=== PATIENT | male | born 1980 | race Caucasian/White ===

== ENCOUNTER 2024-02-09 12:57 | Emergency (ER) | payer OTHER ==
[2024-02-09] MEDS ORDERED: ASPIRIN 81 MG CHEWABLE TABLET ONE (13:27)
--- NOTE | 2024-02-09 13:55 | RAD REPORT ---
EXAM DESCRIPTION: [place] Single View02/09/2024 1:44 pm CLINICAL HISTORY: cough COMPARISON: 2016 FINDINGS: The lungs appear clear of acute infiltrate. The heart is normal size IMPRESSION: No acute abnormalities displayed
[2024-02-09 13:58] LABS: Absolute Lymphocytes (CBC) 0.9 K/uL (0.7-4.9); Absolute Monocytes 0.6 K/uL (0.1-1.3); Absolute Neutrophil 8.4 K/uL (1.8-8.0); Basophils % 0.3 % (0-1.3); Eosinophils % 0.4 % (0-4.4); Hematocrit 45.7 % (39.6-49.0); MCH 29.5 pg (27.0-35.0); MCHC 32.9 g/dL (32.0-36.0); MCV 89.6 fL (80-100); MPV 7.8 fL (7.6-11.3); Monocytes % 6.1 % (3.3-12.3); Neutrophils % 84.2 % (41.7-73.7); Platelets 259 thou/uL (152-406)
[2024-02-09 14:19] LABS: ALT/SGPT 28 U/L (16-61); AST/SGOT 11 U/L (15-37); Albumin 4.2 g/dL (3.4-5.0); Albumin/Globulin Ratio 1.2 (1.1-1.8); Alkaline Phosphatase 113 U/L (45-117); Anion Gap 6.3 mEq/L (5.0-15.0); BUN Blood Urea Nitrogen 17 mg/dL (7-18); Bicarbonate 30 mEq/L (21-32); Bilirubin Direct 0.2 mg/dL (0-0.2); Bilirubin Indirect, Calculated 0.5 mg/dL (0.2-0.8); Bilirubin Total 0.7 mg/dL (0.2-1.0); Globulin 3.6 g/dL (2.3-3.5); Glomerular Filtration Rate 86 ml/min (=/>90); Glucose Level 98 mg/dL (74-106); Magnesium 2.2 mg/dL (1.6-2.4); NT PRO-BNP 18 pg/mL (<125); Potassium 4.3 mEq/L (3.5-5.1); Protein, Total 7.8 g/dL (6.4-8.2); Sodium Level 138 mEq/L (136-145)
[2024-02-09 14:20] LABS: Troponin High Sensitivity < 3.0 pg/mL (<58.9)
[2024-02-09 14:23] LABS: PT Prothrombin Time 12.5 SECONDS (9.4-12.5); Protime INR 1.14
[2024-02-09] MEDS ORDERED: METHYLPREDNISOLONE 125 MG INJ ONE (14:35)
[2024-02-09] MEDS ORDERED: ALBUTEROL 2.5 MG/3 ML NEB SOL ONE (14:35)
[2024-02-09] MEDS ORDERED: IPRATROPIUM BROM 0.5MG/2.5ML ONE (14:35)
--- NOTE | 2024-02-09 16:31 | RAD REPORT ---
EXAM DESCRIPTION: CT - Chest For Pe Angio - 02/09/2024 4:03 pm CLINICAL HISTORY: Chest pain COMPARISON: None. TECHNIQUE: Dynamically enhanced axial 3 mm thick images of the chest were obtained during administra tion of 100 mL Isovue 370 IV contrast. Coronal and oblique reconstruction images were generated and r eviewed. Exam utilizes a protocol for optimal evaluation of pulmonary arterial tree. Maximum intensity projections 3D imaging was utilized All CT scans are performed using dose optimization technique as appropriate and may include automated exposure control or mA/KV adjustment according to patient size. FINDINGS: A pulmonary embolus is not seen. A thoracic aortic aneurysm is not noted. A pleural effusion is not seen. A pericardial effusion is not seen. Mild bilateral patchy ground-glass opacities IMPRESSION: Negative for a pulmonary embolism. Mild to moderate patchy bilateral ground-glass opacities may indicate infection
--- NOTE | 2024-02-09 16:41 | EDPHYS ---
Physician Documentation [facility] Name: Stephon March Age: 43 yrs Sex: Male : 1980 Arrival Date: 02/09/2024 Time: 12:57 Bed 12 Private MD: ED Physician Carlos Alex HPI: 02/08 13:25 This 43 yrs old Male presents to ER via Ambulatory with complaints of Chest Pain, Chest cp Congestion. 13:25 The patient or guardian reports chest pain that is located primarily in the anterior cp chest wall. 13:25 Associated signs and symptoms: Pertinent positives: cough, chest congestion times 2 cp weeks, shortness of breath, Pertinent negatives: abdominal pain, lower extremity pain, lower extremity swelling, near syncope. The chest pain is described as aching. Historical: - Allergies: 13:10 No Known Allergies; ll1 - Home Meds: 13:10 atorvastatin oral [Active]; ll1 - PMHx: 13:10 Hypercholesterolemia; ll1 - PSHx: 13:10 None; ll1 - Immunization history:: Adult Immunizations up to date. - Infectious Disease History:: Denies. - Social history:: Smoking status: Patient denies any tobacco usage or history of. ROS: 13:30 Constitutional: Negative for body aches, chills, fever, poor PO intake, cp 13:30 Eyes: Negative for injury, pain, redness, and discharge, cp 13:30 ENT: Negative for drainage from ear(s), ear pain, sore throat, difficulty swallowing, difficulty handling secretions, 13:30 Cardiovascular: Positive for chest pain, 13:30 Respiratory: Positive for cough, with white sputum, shortness of breath, at rest. 13:30 Abdomen/GI: Negative for abdominal pain, vomiting, diarrhea, constipation, 13:30 Neuro: Negative for altered mental status, dizziness, headache, syncope, near syncope, weakness, 13:30 All other systems are negative, Exam: 13:35 Constitutional: The patient appears in no acute distress, alert, awake, cp non-diaphoretic, non-toxic, well developed, well nourished, 13:35 Head/Face: Normocephalic, atraumatic. cp 13:35 Eyes: Periorbital structures: appear normal, Conjunctiva: normal, no exudate, no injection, Sclera: no appreciated abnormality, Lids and lashes: appear normal, bilaterally, 13:35 ENT: External ear(s): are unremarkable, Ear canal(s): are normal, clear, TM's: dullness, bilaterally, Nose: is normal, Mouth: Lips: moist, Oral mucosa: pink and intact, moist, Posterior pharynx: Airway: no evidence of obstruction, patent, swelling, is not appreciated, erythema, is not appreciated, exudate, is not appreciated, 13:35 Neck: ROM/movement: is normal, is supple, without pain, no range of motions limitations, no meningismus, no nuchal rigidity, 13:35 Chest/axilla: Inspection: normal, Palpation: is normal, no crepitus, no tenderness, 13:35 Cardiovascular: Rate: normal, Rhythm: regular, Edema: is not appreciated, JVD: is not appreciated, 13:35 Respiratory: the patient does not display signs of respiratory distress, Respirations: labored breathing, is not present, Breath sounds: bronchial sounds, that are mild, are heard diffusely, stridor, is not appreciated, wheezing: is not appreciated, 13:35 Abdomen/GI: Inspection: abdomen appears normal, Palpation: abdomen is soft and non-tender, in all quadrants, 13:35 Back: pain, is absent, ROM is normal, 13:35 Neuro: Orientation: to person, place \T\ time. Mentation: is normal, Motor: moves all fours, strength is normal, Sensation: is normal, 13:48 ECG was reviewed by the Attending Physician. cp Vital Signs: 13:11 BP 112 / 79; Pulse 71; Resp 16; Temp 97.8; Pulse Ox 97% on R/A; Weight 99.79 kg; Height ll1 6 ft. 3 in. ; Pain 10/10; 14:47 BP 110 / 67; Pulse 56; Resp 14 S; Pulse Ox 99% on R/A; as6 15:27 BP 115 / 68; Pulse 64; Resp 15; Pulse Ox 97% ; as6 17:02 BP 117 / 82; Pulse 61; Resp 19; Pulse Ox 95% ; as6 13:11 Body Mass Index 27.50 (99.79 kg, 190.5 cm) ll1 13:11 Pain Scale: Adult ll1 MDM: 13:05 Patient medically screened. cp 16:38 The patient was given aspirin in the Emergency Department. cp 16:38 Differential diagnosis: acute myocardial infarction, chest wall pain, pleurisy, cp pneumonia, pulmonary embolus. Data reviewed: vital signs, nurses notes, lab test result(s), EKG, radiologic studies, CT scan, plain films. I considered the following discharge prescriptions or medication management in the emergency department Medications were administered in the Emergency Department. See MAR. Independent interpretation of the following test(s) in the Emergency Department EKG: See my EKG interpretation above. 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 Response to treatment: the patient's symptoms have markedly improved after treatment, and as a result, I will discharge patient. 02/08 13:26 Order name: Basic Metabolic Panel; Complete Time: 14:25 cp 07/05 14:25 Interpretation: Normal except: GFR 86. cp 02/08 13:26 Order name: CBC with Diff; Complete Time: 14:25 cp 02/08 13:26 Order name: LFT's; Complete Time: 14:25 cp 07/ 13:26 Order name: Magnesium; Complete Time: 14:25 cp 07/05 13:26 Order name: NT PRO-BNP; Complete Time: 14:25 cp 07/ 13:26 Order name: PT-INR; Complete Time: 14:25 cp 07/05 13:26 Order name: Troponin HS; Complete Time: 14:25 cp 07/05 13:26 Order name: XRAY Chest (1 view); Complete Time: 13:58 cp /05 13:58 Interpretation: Report review. cp 02/08 15:28 Order name: CT Chest For PE Angio; Complete Time: 16:32 cp 07/ 16:33 Interpretation: Report reviewed. cp 02/08 13:26 Order name: Cardiac monitoring; Complete Time: 13:51 cp 07/ 13:26 Order name: EKG - Nurse/Tech; Complete Time: 13:51 cp 07/ 13:26 Order name: IV Saline Lock; Complete Time: 13:51 cp 07/05 13:26 Order name: Labs collected and sent; Complete Time: 13:51 cp 02/08 13:26 Order name: O2 Per Protocol; Complete Time: :51 cp 02/08 13:26 Order name: O2 Sat Monitoring; Complete Time: :51 cp EC:48 Rate is 66 beats/min. Rhythm is regular. ID interval is normal. QRS interval is normal. cp QT interval is normal. T waves are Inverted in leads III, aVR. Interpreted by me. Reviewed by me. Administered Medications: 13:40 Drug: Aspirin PO Chewable Tablet 324 mg PO once; 81 mg tablets x 4 Route: PO; as6 16:49 Follow up: Response: No adverse reaction as6 14:41 Drug: MethylPrednisoLONE IVP 125 mg IVP once Route: IVP; Site: right antecubital; as6 16:49 Follow up: Response: No adverse reaction as6 14:41 Drug: Albuterol Inhalation 2.5 mg Inhalation once Route: Inhalation; as6 16:49 Follow up: Response: No adverse reaction as6 14:41 Drug: Ipratropium Inhalation Aerosol 0.5 mg Inhalation once Route: Inhalation; as6 16:49 Follow up: Response: No adverse reaction as6 16:49 Drug: Rocephin IV 1 grams IV at calculated rate once; Given slow IV push per pharmacy as6 instructions Route: IV; Rate: calculated rate; Site: right antecubital; 17:02 Follow up: Response: No adverse reaction; IV Status: Completed infusion; IV Intake: [id number] 16:49 Drug: AZITHromycin PO 500 mg PO once Route: PO; as6 17:02 Follow up: Response: No adverse reaction as6 Disposition: 02/09 07:04 Co-signature as Attending Physician, Carlos Alex MD I reviewed the patient's care rn provided by the Advanced Practice Provider and agree with the diagnosis and treatment plan. Disposition Summary: 02/09/24 16:39 Discharge Ordered Notes: Location: Home cp Problem: new cp Symptoms: have improved cp Condition: Stable cp Diagnosis - Chest pain, unspecified cp - Pneumonia, unspecified organism cp Followup: cp - With: Private Physician - When: 2 - 3 days - Reason: Recheck today's complaints Discharge Instructions: - Discharge Summary Sheet cp - Nonspecific Chest Pain, Adult cp - Community-Acquired Pneumonia, Adult cp Forms: - Medication Reconciliation Form cp - Antibiotic Education cp - Prescription Opioid Use cp - Patient Portal Instructions cp - Leadership Thank You Letter cp Prescriptions: - Bromfed DM 2-30-10 mg/5 mL Oral syrup - administer 10 milliliter ORAL route every 6 to 8 hours as needed for cold cp symptoms; 240 milliliter; Refills: 0, Product Selection Permitted - albuterol sulfate 90 mcg/actuation Inhalation HFA Aerosol Inhaler - inhale 1 inhalation INHALATION route every 4 to 6 hours as needed for cp bronchospasm; administer via ventilator; 1 unit; Refills: 0, Product Selection Permitted - Augmentin 875-125 mg Oral Tablet - take 1 tablet ORAL route every 12 hours for 10 days; 20 tablet; Refills: 0, cp Product Selection Permitted - Ibuprofen 800 mg Oral Tablet - take 1 tablet ORAL route every 8 hours As needed take with food; 30 tablet; cp Refills: 0, Product Selection Permitted - Zithromax Z-Gregory 250 mg Oral Tablet - take 1 tablet ORAL route as directed for 5 days Day 1 - take two (2) tablets cp one time. Day 2, 3, 4 , 5 take one (1) tablet once daily.; 6 tablet; Refills: 0, Product Selection Permitted Signatures: Dispatcher [employer] EDMS Carlos Alex MD MD rn Page, Corey, PA PA cp Lewis, Lynsay, RN RN ll1 Herberth Schilling RN RN as6
--- NOTE | 2024-02-09 16:41 | ER ---
Nurse's Notes [facility] Name: Stephon March Age: 43 yrs Sex: Male : 1980 Arrival Date: 02/09/2024 Time: 12:57 Bed 12 Private MD: Diagnosis: Chest pain, unspecified;Pneumonia, unspecified organism Presentation: 02/08 13:11 Chief complaint: Patient states: Cough for 2 weeks, + chills, unknown if he has fever. ll1 Some N/V/D and itchy rash. On steroids that aren't helping yet. Coronavirus screen: Client denies travel out of the [place] in the last 14 days. cough unrelated to allergies, difficulty breathing, fatigue, muscle pain, shortness of breath, Client presents with at least one sign or symptom that may indicate coronavirus-19. Standard/surgical mask placed on the client. Ebola Screen: Patient denies travel to an Ebola-affected area in the 21 days before illness onset. Initial Sepsis Screen: Does the patient meet any 2 criteria? No. Patient's initial sepsis screen is negative. Does the patient have a suspected source of infection? No. Patient's initial sepsis screen is negative. Risk Assessment: Do you want to hurt yourself or someone else? Patient reports no desire to harm self or others. Onset of symptoms was January 26, 2024. 13:11 Method Of Arrival: Ambulatory ll1 13:11 Acuity: DANELLE 3 ll1 Triage Assessment: 13:13 General: Appears uncomfortable, Behavior is cooperative, appropriate for age, anxious. ll1 Pain: Denies pain. Aggravated by CP with coughing. Respiratory: Reports cough that is pain with cough. GI: Reports diarrhea, nausea, vomiting. Historical: - Allergies: 13:10 No Known Allergies; ll1 - Home Meds: 13:10 atorvastatin oral [Active]; ll1 - PMHx: 13:10 Hypercholesterolemia; ll1 - PSHx: 13:10 None; ll1 - Immunization history:: Adult Immunizations up to date. - Infectious Disease History:: Denies. - Social history:: Smoking status: Patient denies any tobacco usage or history of. Screenin:[facility] ED Fall Risk Assessment (Adult) History of falling in the last 3 months, as6 including since admission No falls in past 3 months (0 pts) Confusion or Disorientation No (0 pts) Intoxicated or Sedated No (0 pts) Impaired Gait No (0 pts) Mobility Assist Device Used No (0 pt) Altered Elimination No (0 pt) Score/Fall Risk Level 0 - 2 = Low Risk Oriented to surroundings, Maintained a safe environment, Educated pt \T\ family on fall prevention, incl call for assistance when getting out of bed, Assessed \T\ reinforced patient's understanding of fall precautions. Abuse screen: Denies threats or abuse. Denies injuries from another. Nutritional screening: No deficits noted. Tuberculosis screening: No symptoms or risk factors identified. Assessment: 14:47 General: Appears in no apparent distress. comfortable. Respiratory: Reports cough that as6 is productive, hacking, persistent Breath sounds are clear bilaterally. 17:03 Reassessment: Patient appears in no apparent distress at this time. Patient and/or as6 family updated on plan of care and expected duration. Pain level reassessed. Patient is alert, oriented x 3, equal unlabored respirations, skin warm/dry/pink. Patient states feeling better. Vital Signs: 13:11 BP 112 / 79; Pulse 71; Resp 16; Temp 97.8; Pulse Ox 97% on R/A; Weight 99.79 kg; Height ll1 6 ft. 3 in. ; Pain 10/10; 14:47 BP 110 / 67; Pulse 56; Resp 14 S; Pulse Ox 99% on R/A; as6 15:27 BP 115 / 68; Pulse 64; Resp 15; Pulse Ox 97% ; as6 17:02 BP 117 / 82; Pulse 61; Resp 19; Pulse Ox 95% ; as6 13:11 Body Mass Index 27.50 (99.79 kg, 190.5 cm) ll1 13:11 Pain Scale: Adult ll1 ED Course: 13:00 Patient arrived in ED. mg5 13:04 Herberth Schilling, RAYRAY is Primary Nurse. as6 13:05 Scar Michaels PA is PHCP. cp 13:05 Carlos Alex MD is Attending Physician. cp 13:10 Arm band placed on. ll1 13:13 Triage completed. ll1 13:46 XRAY Chest (1 view) In Process Unspecified. EDMS 13:51 Basic Metabolic Panel Sent. as6 13:51 CBC with Diff Sent. as6 13:51 LFT's Sent. as6 13:51 Magnesium Sent. as6 13:51 NT PRO-BNP Sent. as6 13:51 PT-INR Sent. as6 13:51 Troponin HS Sent. as6 13:51 Inserted saline lock: 20 gauge in right antecubital area, using aseptic technique. as6 Blood collected. 13:52 Bed in low position. Call light in reach. Side rails up X 1. Client placed on as6 continuous cardiac and pulse oximetry monitoring. NIBP monitoring applied. sfdc developer on. PO fluids given. 15:27 Warm blanket given. as6 16:04 CT Chest For PE Angio In Process Unspecified. EDMS 17:03 Provided Education on: rx teaching . as6 17:03 No provider procedures requiring assistance completed. IV discontinued, intact, as6 bleeding controlled, No redness/swelling at site. Pressure dressing applied. Administered Medications: 13:40 Drug: Aspirin PO Chewable Tablet 324 mg PO once; 81 mg tablets x 4 Route: PO; as6 16:49 Follow up: Response: No adverse reaction as6 14:41 Drug: MethylPrednisoLONE IVP 125 mg IVP once Route: IVP; Site: right antecubital; as6 16:49 Follow up: Response: No adverse reaction as6 14:41 Drug: Albuterol Inhalation 2.5 mg Inhalation once Route: Inhalation; as6 16:49 Follow up: Response: No adverse reaction as6 14:41 Drug: Ipratropium Inhalation Aerosol 0.5 mg Inhalation once Route: Inhalation; as6 16:49 Follow up: Response: No adverse reaction as6 16:49 Drug: Rocephin IV 1 grams IV at calculated rate once; Given slow IV push per pharmacy as6 instructions Route: IV; Rate: calculated rate; Site: right antecubital; 17:02 Follow up: Response: No adverse reaction; IV Status: Completed infusion; IV Intake: [id number] 16:49 Drug: AZITHromycin PO 500 mg PO once Route: PO; as6 17:02 Follow up: Response: No adverse reaction as6 Medication: 13:52 VIS not applicable for this client. as6 Intake: 17:02 IV: 10ml; Total: 10ml. as6 Outcome: 16:39 Discharge ordered by MD. traylor 17:03 Discharged to home ambulatory, with significant other, as6 17:03 Condition: stable 17:03 Discharge instructions given to patient, significant other, Instructed on discharge instructions, follow up and referral plans. medication usage, Demonstrated understanding of instructions, follow-up care, medications, Prescriptions given X 5 17:04 Patient left the ED. as6 Signatures: Dispatcher [employer] EDMS Scar Michaels PA PA cp Lewis, Lynsay, RN RN ll1 Herberth Schilling RN RN as6 Enid Barker 5
[2024-02-09] MEDS ORDERED: AZITHROMYCIN 250 MG TAB ONE (16:44)
[2024-02-09] MEDS ORDERED: CEFTRIAXONE 1000 MG/VIAL ONE (16:44)
[2024-02-09 17:23] VITALS: BP 117/82; TEMP 97.8; O2SAT 95
--- NOTE | 2024-02-13 09:05 | EKG ---
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
== END 2024-02-09 17:04 | disposition home or self-care (01) ==
LOC: ER 12:57
DX: J18.9 Pneumonia, unspecified organism (principal)
CPT/HCPCS: 85025; 80048; 36415; 83735; 85610; 80076; 84484; 83880; 71275; 71045; 96375; 96374; 99285; Q9967; J7613; J7644; J2919; J0696; 93005